=== PATIENT | male | born 1950 | race Hispanic/Latino ===

== ENCOUNTER 2018-08-14 11:51 | Outpatient (CLI) | payer OTHER ==
[2018-08-14 12:52] LABS: #Eosinphils 0.1 thou/uL (0.0-0.7); #Lymphocytes 2.1 thou/uL (1.20-3.40); #Monocytes 0.4 thou/uL (0.11-0.59); %Basophils 0.5 % (0.0-1.0); %Lymphocytes 37.6 % (21.0-51.0); %Monocytes 6.7 % (0.0-10.0); %Neutrophils 53.2 % (42.0-75.0); Hemoglobin 15.2 g/dL (14.0-18.0); Mean Corpuscular HGB CONC 33.3 g/dL (32.0-36.0); Mean Corpuscular Hemoglobin 30.5 pg (27.0-31.0); Mean Corpuscular Volume 91.5 fL (78.0-98.0); Mean Platelet Volume 9.9 fL (7.4-10.4); Platelet Count 162 thou/uL (130-400); Red Blood Cell (RBC) Count 4.97 mill/uL (4.70-6.10); White Blood Cell (WBC) Count 5.6 thou/uL (4.8-10.8)
[2018-08-14 12:58] LABS: INR-International Normal Ratio 1.1; Prothrombin Time 14.2 SEC (12.0-14.7)
[2018-08-14 12:59] LABS: PTT 32.5 SEC (22.9-36.1)
[2018-08-14 13:15] LABS: ALT (SGPT) 74 U/L (8-55); AST (SGOT) 45 U/L (5-34); Albumin 4.5 g/dL (3.4-4.8); Alkaline Phosphatase 63 U/L (40-150); Anion Gap 12 mmol/L (10-20); BUN (Urea Nitrogen) 28 mg/dL (8.4-25.7); Bilirubin, Total 1.5 mg/dL (0.2-1.2); Calc. Creatinine Clearance 0 mL/min (70-130); Calcium 9.4 mg/dL (7.8-10.44); Carbon Dioxide 23 mmol/L (23-31); Chloride 106 mmol/L (98-107); Estimated GFR-MDRD 66; Glucose 135 mg/dL (80-115); Potassium 4.4 mmol/L (3.5-5.1); Protein, Total 7.5 g/dL (5.8-8.1); Sodium 137 mmol/L (136-145)
== END 2018-08-14 11:52 | disposition home or self-care (01) ==
LOC: LABBT 11:51
PROVIDERS: ATTEND Internal Medicine Cardiovascular Disease
DX: Z01.812 Encounter for preprocedural laboratory examination (principal); I25.10 Atherosclerotic heart disease of native coronary artery without angina pectoris
CPT/HCPCS: 80053; 85025; 85610; 85730

== ENCOUNTER 2018-08-22 06:37 | Day surgery (SDC) | payer MEDICARE, OTHER ==
[2018-08-14 11:58] VITALS: BMI 37.6
[2018-08-22] MEDS ORDERED: Lidocaine 1% (PF) 30 ML VIAL ONE (08:22)
[2018-08-22] MEDS ORDERED: Midazolam HCl 2 mg/2 ml Vial ONE (08:52)
[2018-08-22] MEDS ORDERED: Fentanyl 100 MCG/2 ML VIAL ONE (08:53)
[2018-08-22 08:56] LABS: Cardiac Risk 3.8 (Less than 4.5)
[2018-08-22] MEDS ORDERED: Iopamidol 370 76% 50 ML VIAL FS ONE (13:54)
[2018-08-22] MEDS ORDERED: Iopamidol 370 76% 100 ML VIAL ONE (13:54)
--- NOTE | 2018-08-22 19:23 | CON ---
DATE OF CONSULTATION: 08/22/2018 REQUESTING PHYSICIAN: Dr. Quiroz. Primary care is [facility]. CHIEF COMPLAINT: Dyspnea on exertion. HISTORY OF PRESENT ILLNESS: The patient is a 68-year-old man with known coronary artery disease who underwent a long stenting of his LAD in 2009. At that time, he had been having dyspnea on exertion a nd occasional chest heaviness and he had apparently done reasonably well up until about a year ago. Around that time, he began developing shortness of breath with mild exertion and occasionally that wo uld be associated with chest heaviness similar to what he had experienced prior to his stenting. The patient indicates that his symptoms has been gradually getting worse over the past year and he now g ets short of breath with minimal exertion and occasionally even at rest. The patient was vague about whether the onset of these symptoms a year ago was gradual or rapid. The patient had a nuclear stre ss test in 05/2017 that was part of a preoperative evaluation for cholecystectomy. At that time, the re was no obvious ischemia and his ejection fraction was around 55%. His cardiac catheterization tod foreign shows severe 3-vessel coronary artery disease with occlusion of his LAD just beyond very proximal first septal glove pairer which corresponds to the start of his stent. His LVEF by my estimation is ar ound 30% with marked anterior hypokinesis and an inferoapical area of essentially akinesis. PAST MEDICAL HISTORY: Coronary artery disease, hypertension, hyperlipidemia and cholecystectomy. He denies diabetes. HOME MEDICATIONS: Plavix 75 mg a day, aspirin 81 mg a day, lovastatin 20 mg at bedtime, Isordil 30 m g a day. ALLERGIES: He denies any medical allergies. SOCIAL HISTORY: He does not smoke. FAMILY HISTORY: Significant for hypertension in family members. No known diabetes. He did have a b rother with coronary artery disease. REVIEW OF SYSTEMS: Negative for any eye, speech, facial, or extremity symptoms consistent with TIAs. Negative for any other breathing problems prior to this one year progression of dyspnea on exertion . He denies any orthopnea or PND. He does report some mild dependent edema. He denies any claudica tion. PHYSICAL EXAMINATION: GENERAL: He is a stocky healthy-appearing man. VITAL SIGNS: Height is 5 feet and 2 inches, weight is 205 pounds, heart rate is 62, blood pressure 1 43/65, room air O2 sats are 94%-98% and temperature 98.8. HEENT: He has no xanthelasma. NECK: No JVD, no carotid bruits. CHEST: Clear to auscultation. He has a regular rate and rhythm without murmur or gallop. ABDOMEN: Soft and nontender. EXTREMITIES: He has palpable radial, dorsalis pedis, and posterior tibial pulses. He has some small bulging varicosities just below the knee in the saphenous distribution bilaterally. He has no obvio us edema. NEUROLOGIC: Grossly nonfocal exam. LABORATORY DATA AND IMAGING DATA: Laboratory exam shows a white count of 5.6, hemoglobin 15.2, hemat ocrit 45.5 and platelets 162,000. PT is 14.2, INR 1.1, PTT 32.5. Normal electrolytes, glucose 135, BUN 28, creatinine 1.11, bilirubin is 1.5, alkaline phosphatase 63, AST 45, ALT 74, calcium 9.4, prot ein 7.5, albumin 4.5, triglycerides 82, cholesterol 132, LDL 81 and HDL 35. Chest x-ray from last bruary shows borderline cardiomegaly and slightly prominent pleural markings and perhaps some early r ight-sided discoid. His cardiac catheterization shows a right dominant system with about an 80% sten osis in the proximal PDA. His left main appears normal. His first septal glove pairer comes off almos t at the origin of the LAD immediately beyond that is very long stent in the LAD that is occluded. T he LAD cannot be appreciated on left-sided injections, but on right-sided injections, an under-filled LAD can be seen filling through an extensive network of septal collaterals and there is some competi tive flow demonstrated just beyond the stent. In reviewing his films at the time of stenting in 2009 , he had a reasonably good quality LAD, perhaps slightly small. There is a reasonably good diagonal that came off the LAD at fairly high in the level of the stent that is no longer appreciable. He has about a 60% lesion at the ostium of his circumflex. He has a fairly good size OM1 with a 70%-80% le latricia in it and a smaller OM2. LVEF is around 30%. LV pressure was 163/11 with an EDP of 30. Aortic pressure on pullback was 161/62 with a mean of 98. ASSESSMENT AND PLAN: Severe three-vessel coronary artery disease with decreased LV function, althoug h at increased risk. Because of his decreased LV function, patient has a statistically survival adva ntage with surgical revascularization. While it is possible that the LAD may not be graftable, I manjit pect that it is actually under-filled and will be bypassable. He is clinically stable. I will plan on getting him off of his Plavix and then doing coronary artery bypass grafting in about a week or 10 days. I will be prepared at that time for balloon pump placement should that be necessary.
== END 2018-08-22 14:21 | disposition home or self-care (01) ==
LOC: CCL 06:37
PROVIDERS: ATTEND Internal Medicine Cardiovascular Disease
PROC: 4A023N7 Measurement of Cardiac Sampling and Pressure, Left Heart, Percutaneous Approach (ICD-10-PCS; principal; 2018-08-22)
PROC: B2111ZZ Fluoroscopy of Multiple Coronary Arteries using Low Osmolar Contrast (ICD-10-PCS; 2018-08-22)
DX: I25.10 Atherosclerotic heart disease of native coronary artery without angina pectoris (principal); I10 Essential (primary) hypertension; E78.5 Hyperlipidemia, unspecified; E66.9 Obesity, unspecified; Z68.37 Body mass index [BMI] 37.0-37.9, adult; Z79.02 Long term (current) use of antithrombotics/antiplatelets; Z79.82 Long term (current) use of aspirin; Z79.899 Other long term (current) drug therapy
CPT/HCPCS: 36415; 80061; 93458; 99152; C1769; J1644; J2001; J2250; J3010

== ENCOUNTER 2018-09-02 06:01 | Inpatient (IN) | payer MEDICARE ==
[2018-09-02] MEDS ORDERED: Albumin 5% 500 ML ONE (06:27)
[2018-09-02] MEDS ORDERED: CEFAZOLIN 2 GM/50 ML BAG ONE (06:45)
[2018-09-02] MEDS ORDERED: Dexmedetomidine 200 MCG/2 ML VIAL ONE (06:51)
[2018-09-02] MEDS ORDERED: Fentanyl 250 MCG/5 ML VIAL ONE (06:51)
[2018-09-02] MEDS ORDERED: Norepinephrine 8 MG/0.9% NS 250 ML ONE (06:51)
[2018-09-02] MEDS ORDERED: Vecuronium 10 MG VIAL ONE ×2 (06:51→14:03)
[2018-09-02] MEDS ORDERED: Midazolam HCl 2 mg/2 ml Vial ONE ×2 (06:51→07:04)
[2018-09-02 07:14] LABS: Hemoglobin 15.3 g/dL (14.0-18.0); Mean Corpuscular Hemoglobin 29.5 pg (27.0-31.0); Mean Corpuscular Volume 89.6 fL (78.0-98.0); Mean Platelet Volume 9.5 fL (7.4-10.4); Platelet Count 186 thou/uL (130-400); RBC Distribution Width 11.4 % (11.5-14.5); Red Blood Cell (RBC) Count 5.18 mill/uL (4.70-6.10); White Blood Cell (WBC) Count 5.4 thou/uL (4.8-10.8)
[2018-09-02] MEDS ORDERED: Heparin 10,000 UNITS/1 ML VIAL 30,000 UNITS in Sodium Chloride 0.9% 1,000 ML FS SCH (07:15)
[2018-09-02 07:22] LABS: Anion Gap 12 mmol/L (10-20); BUN (Urea Nitrogen) 22 mg/dL (8.4-25.7); Calc. Creatinine Clearance 0 mL/min (70-130); Calcium 9.8 mg/dL (7.8-10.44); Carbon Dioxide 26 mmol/L (23-31); Chloride 103 mmol/L (98-107); Estimated GFR-MDRD 88; Glucose 108 mg/dL (80-115); Potassium 3.6 mmol/L (3.5-5.1); Sodium 137 mmol/L (136-145)
[2018-09-02] MEDS ORDERED: Milrinone 10 MG/10 ML VIAL ONE (07:23)
[2018-09-02] MEDS ORDERED: hydrALAZINE 20 MG/ML VIAL SLOW IVP PRN (08:05)
[2018-09-02] MEDS ORDERED: Morphine 2 MG/ML SYRINGE SLOW IVP PRN (08:05)
[2018-09-02] MEDS ORDERED: Post-Op Insulin Drip Protocol IVPB ONE (08:05)
[2018-09-02] MEDS ORDERED: niCARdipine HCl 25 MG in Sodium Chloride 0.9% 250 ML 240 ML IVPB PRN (08:05)
[2018-09-02] MEDS ORDERED: Potassium Chloride 20 MEQ/100 ML PREMIX BAG IVPB PRN (08:05)
[2018-09-02] MEDS ORDERED: Guaifenesin DM 100-10/5 ML UDCUP PO PRN (08:05)
[2018-09-02] MEDS ORDERED: Nitroglycerin 50 MG/250 ML BOT 250 ML IVPB PRN (08:05)
[2018-09-02] MEDS ORDERED: Fentanyl 100 MCG/2 ML VIAL SLOW IVP PRN ×2 (08:05)
[2018-09-02] MEDS ORDERED: Bisacodyl 10 MG SUPP PR PRN (08:05)
[2018-09-02] MEDS ORDERED: Norepinephrine 8 MG/0.9% NS 250 ML IVPB PRN (08:05)
[2018-09-02] MEDS ORDERED: Hetastarch 6% 500 ML 500 ML IVPB PRN (08:05)
[2018-09-02] MEDS ORDERED: Promethazine HCl 25 MG/ML VIAL IM PRN (08:05)
[2018-09-02] MEDS ORDERED: Acetaminophen 325 MG TAB PO PRN (08:05)
[2018-09-02] MEDS ORDERED: Bisacodyl 5 MG TAB PO PRN (08:05)
[2018-09-02] MEDS ORDERED: Mag-Al 1200 mg/1200 mg/30 ML UDCUP PO PRN (08:05)
[2018-09-02] MEDS ORDERED: Dextrose 5% in Water 1,000 ML IV PRN (08:24)
[2018-09-02] MEDS ORDERED: Dextrose 50% Abboject 50 ML SYRINGE SLOW IVP PRN (08:24)
[2018-09-02] MEDS ORDERED: Insulin Regular 300 UNITS/3 ML VIAL ONE (09:32)
--- NOTE | 2018-09-02 09:57 | RAD ---
PORTABLE CHEST 1 VIEW: DATE: 09/02/2018. TIME: 5:34 a.m. HISTORY: Coronary artery disease, preop evaluation, CABG. FINDINGS: Comparison is made with the exam of 11/14/2017. The heart size is prominent. The lungs are expanded without focal areas of consolidation, pneumothor ax, david pulmonary edema, or large effusions. POS: GALILEAH
[2018-09-02] MEDS: Aspirin 81 mg Enteric Coated Tablet PO SCH (10:55)
[2018-09-02] MEDS ORDERED: PHENYLEPHRINE-NS 100 MCG/ML 10 ML SYRINGE ONE (11:19)
[2018-09-02] MEDS: Sodium Chloride 0.9% 1,000 ML IV SCH (13:25)
[2018-09-02 13:36] LABS: #Eosinphils 0.1 thou/uL (0.0-0.7); #Monocytes 0.7 thou/uL (0.11-0.59); #Neutrophils 11.1 thou/uL (1.40-6.50); %Basophils 0.1 % (0.0-1.0); %Eosinophils 0.6 % (0.0-10.0); %Lymphocytes 14.2 % (21.0-51.0); %Monocytes 4.8 % (0.0-10.0); %Neutrophils 80.3 % (42.0-75.0); Hemoglobin 12.6 g/dL (14.0-18.0); Mean Corpuscular HGB CONC 34.9 g/dL (32.0-36.0); Mean Corpuscular Hemoglobin 31.1 pg (27.0-31.0); Mean Platelet Volume 9.5 fL (7.4-10.4); Platelet Count 147 thou/uL (130-400); RBC Distribution Width 11.3 % (11.5-14.5); Red Blood Cell (RBC) Count 4.05 mill/uL (4.70-6.10); White Blood Cell (WBC) Count 13.8 thou/uL (4.8-10.8)
--- NOTE | 2018-09-02 13:36 | OP ---
DATE OF PROCEDURE: 09/02/2018 PROCEDURE PERFORMED: Coronary artery bypass grafting x4 with left internal mammary artery to the LAD and reverse greater saphenous vein graft from the aorta to the diagonal from the aorta to the first obtuse marginal from the aorta to the PDA. A 5-St Lucian left femoral arterial line placement with ultr asonographic guidance. PREOPERATIVE DIAGNOSIS: Coronary artery disease with ischemic cardiomyopathy. POSTOPERATIVE DIAGNOSIS: Coronary artery disease with ischemic cardiomyopathy with right pneumothora x. SURGEON: Dr. Bienvenido Starks [employer] INSTRUCTOR: Dr. Fercho Tran ANESTHESIA: General endotracheal anesthesia. INDICATIONS: The patient is a 68-year-old man with known coronary disease, having previously undergo ne proximal LAD stenting. About a year ago he redeveloped chest heaviness and dyspnea on exertion an d was found to have occluded his LAD stent, as well as developing disease in the circumflex and to a lesser extent right coronary system. He had markedly decreased LV function. He was taken off of his Plavix and now admitted electively for surgical revascularization. FINDINGS: Pump time 88 minutes. Crossclamp time 42 minutes. Good quality NELY and saphenous vein. The LAD was about a 1.5-2 mm good quality vessel. The diagonal was about a 1.5 mm vessel with some p laquing in its mid portion. The first obtuse marginal was a 2-2.5 mm vessel which appeared to freely communicate with about a 1.5 mm OM2 in spite of proximal plaquing in the vessel. The PDA was about a 2 mm vessel with proximal plaquing. The right pleura was bulging consistent with a right pneumotho rax. The pericardium was loosely closed. NARRATIVE REPORT: After informed consent was obtained, the patient was taken to the operating room a nd placed in supine position on the operating table. After induction of general anesthesia, the joann ent's right upper chest was prepped and draped in sterile fashion. A triple-lumen central line kit w as used to place a right subclavian line by the Seldinger technique. All three ports easily aspirate d and flushed. The line was secured. Ultrasonographic mapping of the patient's left greater sapheno us vein and left femoral artery were undertaken with the vein and the common femoral marked. The pat ient's torso, groins and lower extremities were then prepped and draped in sterile fashion. A 5-St Lucian left femoral arterial line was placed by the Seldinger technique and greater saphenous vei n was harvested endoscopically from groin to mid calf with a port site at the knee, the vein was prep ared for use as a graft and the harvest sites were closed in layers with subcutaneous and subcuticula r Vicryl. A median sternotomy was performed. The left internal mammary artery was mobilized as a sk eletonized in situ graft from the level of the xiphoid to the level of the subclavian vein, although an extrapleural exposure was initiated, a rather large rent in the medial pleura near the apex noname nable to repair was created in the course of the dissection. The patient was heparinized. The mamma ry was ligated and divided distally. There was good flow through the mammary which was instilled int raluminally with papaverine solution. The mammary bed was inspected for hemostasis. The NELY retract or was placed with an ____. The pericardium was opened and marsupialized. The aorta was palpated an d was soft. The heart was very large and exposure of adequate length of ascending aorta required can nulation above the pericardial reflection. A double concentric pursestring of 2-[address] d in the ascending aorta at the base of the arch and a single pursestring was placed in the right atr ial appendage. Aortic and venous cannulae were inserted and secured by the pursestrings. Cardiopulm onary bypass was instituted and the patient was systemically cooled. The heart was examined. The ve ssel to be bypassed were identified. A longitudinal slit was made in the pericardium anterior to the left phrenic nerve through which the mammary pedicle could be passed. The plane between the aorta a nd the pulmonary artery was developed and aortic cross clamp was applied and cardioplegia was adminis tered through an aortic root needle. When arrest had been achieved attention was turned to the dista l right coronary system. The PDA was opened just beyond some palpable plaque at its origin. The gre ater saphenous vein was reversed and anastomosed their end-to-side with running Prolene suture and th e anastomosis tested by flushing cold cardioplegia down the graft. Attention was then turned to the circumflex system. The OM1 was clearly the larger vessel, although the OM2 appeared to be adequate t o support grafting to get beyond the plaquing in the visible plaquing OM1 and to graft proximally jacque ugh to the OM2 where it a reasonably sized vessel. The OM1 was first opened and saphenous vein was a nastomosed to it end to side, upon flushing cold cardioplegia the end of the graft could be appreciat ed that are quite readily communicated with the OM2 and it was opted to abandon plans to graft that v essel. The diagonal was opened beyond some visible plaquing and anastomosed end-to-side with that sa phenous vein. The LAD was then opened distally and the mammary was anastomosed to it with running 7- 0 Prolene. The mammary was tacked to the epicardium. The aortic crossclamp was placed with partial occluding clamp. Aortotomy was made in the ascending aorta with a scalpel and punch incorporating th e root needle site in one of those aortotomies. In order to accommodate the rather large pulmonary a rtery the aortotomies were made somewhat to the right of midline. The PDA graft was brought along th e right side of the heart and anastomosed to the most proximal aortotomy. The diagonal and OM grafts were anastomosed to the middle and distal aortotomies respectively. The partial occluding clamp was removed and the vein grafts were deaired. The anastomoses were inspected for hemostasis. The proxi mal anastomoses were marked with small Hemoclips. A left pleural drain and a posterior pericardial d rain were brought up through separate incisions and secured with suture. Right atrial and right vent ricular temporary epicardial pacing wires were placed. The patient was then from cardiopul monary bypass. Aortic and venous cannulae were removed and their pursestring secured. Protamine was administered. The right pleura was bulging. It was opened to decompress what appeared to represent a pneumothorax. Additional holes were cut and a straight 36 [place] Lucian chest tube. That chest tube was placed in the anterior mediastinum with the tip passed into the right pleural space. The pericardiu m was loosely closed around it. The sternum was treated with vancomycin paste and platelet-rich GPS and then reapproximated with #7 stainless steel wires. The fascia and subcutaneous tissue was irriga sammy and treated with platelet poor GPS. The fascia was closed over the wires with heavy Vicryl and t he subcu reapproximated with 2-0 Vicryl, and the skin was closed with Vicryl subcuticular suture. Th e wounds were dressed and the patient was taken to the Intensive Care Unit in stable condition.
[2018-09-02 13:42] LABS: Actual Bicarbonate (HCO3a) 23.3 mEq/L (22-28); Base Excess (BEa) -1.3 mEq/L (-2.0 to +3.0); CO2 Tension 38.8 mmHg (35.0-45.0); Calcium, Ionized 1.07 mmol/L (1.12-1.30); Carboxyhemoglobin (COHb) 0.8 gm% (0.0-3.0); Hemoglobin (Hb) 12.9 g/dL (14.0-18.0); O2 Tension (PaO2) 95.1 mmHg (> 80.0); Potassium - ABG Lab 3.98 mmol/L (3.70-5.30)
[2018-09-02 13:44] LABS: Puncture Site ALINE
[2018-09-02 13:45] LABS: INR-International Normal Ratio 1.5; PTT 32.8 SEC (22.9-36.1); Prothrombin Time 18.6 SEC (12.0-14.7)
[2018-09-02 13:54] LABS: Anion Gap 8 mmol/L (10-20); BUN (Urea Nitrogen) 17 mg/dL (8.4-25.7); Calc. Creatinine Clearance 0 mL/min (70-130); Calcium 7.5 mg/dL (7.8-10.44); Carbon Dioxide 23 mmol/L (23-31); Chloride 112 mmol/L (98-107); Estimated GFR-MDRD Greater than 90; Glucose 112 mg/dL (80-115); Potassium 4.1 mmol/L (3.5-5.1); Sodium 139 mmol/L (136-145)
[2018-09-02] MEDS ORDERED: Calcium Chloride 1 GM/10 ML Abboject SYRINGE ONE (14:03)
[2018-09-02] MEDS ORDERED: Thrombin 5000 UNITS/5 ML VIAL ONE (14:03)
[2018-09-02] MEDS ORDERED: Lidocaine 1% PF 5 ML VIAL ONE (14:03)
[2018-09-02] MEDS ORDERED: Norepinephrine 4 MG/4 ML VIAL ONE (14:03)
[2018-09-02] MEDS ORDERED: Cardioplegic Soln 1,000 ML BAG ONE (14:03)
[2018-09-02] MEDS ORDERED: PROPOFOL 200 MG/20 ML VIAL ONE (14:03)
[2018-09-02] MEDS ORDERED: Papaverine 60 MG/2 ML VIAL ONE (14:03)
[2018-09-02] MEDS ORDERED: Protamine Sulfate 250 MG/25 ML VIAL ONE (14:03)
[2018-09-02] MEDS ORDERED: Nitroglycerin 50 MG/250 ML BOT ONE (14:03)
[2018-09-02] MEDS ORDERED: Sodium Bicarb 50 MEQ/50 ML VIAL ONE (14:03)
[2018-09-02] MEDS ORDERED: Heparin 30,000 units/30 ml VIAL ONE (14:03)
[2018-09-02] MEDS ORDERED: Heparin 5,000 UNITS/ML VIAL ONE (14:03)
[2018-09-02] MEDS ORDERED: Aminocaproic Acid 5 GM/20 ML VIAL ONE (14:03)
[2018-09-02] MEDS: Ondansetron PF 4 MG/2 ML Vial IVP PRN (14:17)
[2018-09-02] MEDS: Ketorolac Tromethamine 30 MG/ML VIAL IVP SCH ×3 (14:18→23:25)
[2018-09-02] MEDS: Famotidine/PF 20 mg/2ml Vial SLOW IVP SCH ×2 (14:32→20:26)
--- NOTE | 2018-09-02 15:29 | RAD ---
RADIOGRAPH CHEST 1 VIEW: Date: 09-02-18 Time: 1:20 P.M. HISTORY: 68-year-old male has undergone open heart surgery. COMPARISON: 09-02-18 at 5:34 a.m. FINDINGS: New endotracheal tube with distal tip overlying the upper/mid thoracic trachea. New midline chest tub e ascending from left para median approach with distal tip overlying the contralateral right apex. Ne w chest tube entering the left lateral base with distal tip directed medially overlying the descendin g aorta. Cardiomegaly is again noted. New increased attenuation at left lower lobe consistent with at electasis. Mild new subsegmental atelectasis at right midlung zone. No pulmonary edema or pneumothora x identified. New sternotomy wires. IMPRESSION: 1. Immediately status post open heart surgery with life support lines as listed above. 2. Left lower lobe atelectasis. JO ANN POS: MAULIK
[2018-09-02] MEDS: Insulin Regular 300 UNITS/3 ML VIAL SC PRN ×3 (17:11→23:35)
--- NOTE | 2018-09-02 17:26 | CON ---
DATE OF CONSULTATION: 09/02/2018 REASON FOR CONSULTATION: Post-CABG. PRIMARY TITLE ONE [employer] TEACHER: Anthony Quiroz M.D. HISTORY OF PRESENT ILLNESS: Mr. Yu is a very pleasant 68-year-old gentleman who comes to the hospital for planned CABG. He was taken to the catheterization lab a week ago, he underwent hea rt catheterization after ongoing symptoms suggestive of angina. He had this procedure done and was f ound to have an occluded LAD which fills from collaterals, pain in the left circumflex and the pain i n the right coronary artery. He was taken to the OR and had a MONTELONGO to the LAD, a vein graft to a susan gonal, a vein graft to an OM, and a vein graft to PDA. He did well. He is postoperative day #1. He is still intubated and sedated; however, he is requirin g very small amount of pressor support to maintain his blood pressure. No other issues. PAST MEDICAL HISTORY: 1. Hypertension. 2. Hyperlipidemia. 3. Coronary artery disease as above. PAST SURGICAL HISTORY: 1. Cholecystectomy. 2. CABG x4 as above. OUTPATIENT MEDICATIONS: Include, 1. Plavix 75 mg a day. 2. Lovastatin 20 mg a day. 3. Aspirin 81 a day. 4. Isosorbide mononitrate 30 mg a day. ALLERGIES: No known drug allergies. SOCIAL HISTORY: No alcohol, tobacco or drugs. FAMILY HISTORY: Noncontributory. REVIEW OF SYSTEMS: Unobtainable as the patient is sedated and intubated. PHYSICAL EXAMINATION: VITAL SIGNS: Temperature 97.7, pulse 64, respiratory rate 12, satting 100% on 40% FIO2. Blood press ure 114/51. GENERAL: Sedated and intubated. LUNGS: Have coarse breath sounds. CARDIOVASCULAR: S1, S2. There is a 3 component rub. ABDOMEN: Soft, positive bowel sounds. EXTREMITIES: 1+ edema. SKIN: Warm and dry. LABORATORY WORK: Reviewed. CBC, coags, and ABGs and chemistries were all reviewed. ASSESSMENT AND PLAN: 1. Coronary artery disease. 2. Status post coronary artery bypass graft x4 with a MONTELONGO to the LAD, a vein to diagonal, vein to a n OM, and a vein to RPDA. 3. Hyperlipidemia. 4. Hypertension. PLAN: 1. Continue supportive care for now. 2. He will need a statin and aspirin for life, beta merlin and EMERY inhibitor once blood pressure al lows. 3. We will follow.
--- NOTE | 2018-09-02 19:18 | EKG ---
Test Reason : PREOP Blood Pressure : / mmHG Vent. Rate : 056 BPM Atrial Rate : 056 BPM P-R Int : 180 ms QRS Dur : 126 ms QT Int : 466 ms P-R-T Axes : 019 010 115 degrees QTc Int : 449 ms Sinus bradycardia Non-specific intra-ventricular conduction block T wave abnormality, consider anterolateral ischemia Abnormal ECG When compared with ECG of 29-MAY-2017 22:10, QRS duration has increased T wave inversion now evident in Anterolateral leads Confirmed by ZHANNA OSORIO, SKarie (4) on 09/02/2018 7:17:56 PM Referred By: CLARENCE Confirmed By:DR. Annalisa CHAO MD
--- NOTE | 2018-09-02 19:30 | EKG ---
Test Reason : POST CABG Blood Pressure : / mmHG Vent. Rate : 061 BPM Atrial Rate : 061 BPM P-R Int : 168 ms QRS Dur : 098 ms QT Int : 478 ms P-R-T Axes : 033 008 118 degrees QTc Int : 481 ms Normal sinus rhythm Minimal voltage criteria for LVH, may be normal variant T wave abnormality, consider anterolateral ischemia Prolonged QT Abnormal ECG When compared with ECG of 02-SEP-2018 06:51, (Unconfirmed) QRS duration has decreased Confirmed by ZHANNA OSORIO, DR. Fang ([id number]) on 09/02/2018 7:30:44 PM Referred By: CLARENCE Confirmed By:DR. Annalisa CHAO MD
[2018-09-02 19:32] LABS: Potassium 4.5 mmol/L (3.5-5.1)
[2018-09-02] MEDS: Simvastatin 5 MG TAB PO SCH (20:26)
[2018-09-03] MEDS: Sodium Chloride 0.9% 1,000 ML IV SCH ×2 (01:50→14:20)
[2018-09-03] MEDS: Insulin Regular 300 UNITS/3 ML VIAL SC PRN (04:12)
[2018-09-03] MEDS: Ketorolac Tromethamine 30 MG/ML VIAL IVP SCH (05:11)
[2018-09-03 05:16] LABS: Actual Bicarbonate (HCO3a) 20.4 mEq/L (22-28); Base Excess (BEa) -3.8 mEq/L (-2.0 to +3.0); Calcium, Ionized 1.02 mmol/L (1.12-1.30); Carboxyhemoglobin (COHb) 0.9 gm% (0.0-3.0); Hemoglobin (Hb) 10.4 g/dL (14.0-18.0); O2 Tension (PaO2) 89.5 mmHg (> 80.0); Potassium - ABG Lab 4.25 mmol/L (3.70-5.30)
[2018-09-03 05:17] LABS: Puncture Site ALINE
[2018-09-03 05:38] LABS: Anion Gap 11 mmol/L (10-20); BUN (Urea Nitrogen) 22 mg/dL (8.4-25.7); Calc. Creatinine Clearance 97 mL/min (70-130); Calcium 7.4 mg/dL (7.8-10.44); Carbon Dioxide 21 mmol/L (23-31); Chloride 111 mmol/L (98-107); Estimated GFR-MDRD 75; Glucose 160 mg/dL (80-115); Potassium 4.3 mmol/L (3.5-5.1); Sodium 139 mmol/L (136-145)
[2018-09-03 06:00] LABS: #Lymphocytes 0.6 thou/uL (1.20-3.40); #Monocytes 0.5 thou/uL (0.11-0.59); #Neutrophils 6.2 thou/uL (1.40-6.50); %Eosinophils 0.6 % (0.0-10.0); %Lymphocytes 7.6 % (21.0-51.0); %Monocytes 6.5 % (0.0-10.0); %Neutrophils 85.3 % (42.0-75.0); Hemoglobin 10.7 g/dL (14.0-18.0); Mean Corpuscular HGB CONC 34.1 g/dL (32.0-36.0); Mean Corpuscular Hemoglobin 30.8 pg (27.0-31.0); Mean Corpuscular Volume 90.4 fL (78.0-98.0); Mean Platelet Volume 10.3 fL (7.4-10.4); PLT Morphology Comment Appears Decreased; Platelet Count 119 thou/uL (130-400); RBC Distribution Width 11.5 % (11.5-14.5); Red Blood Cell (RBC) Count 3.46 mill/uL (4.70-6.10); White Blood Cell (WBC) Count 7.2 thou/uL (4.8-10.8)
[2018-09-03] MEDS ORDERED: diphenhydrAMINE 25 MG CAP PO PRN (07:18)
[2018-09-03] MEDS ORDERED: Mag-Al 1200 mg/1200 mg/30 ML UDCUP PO PRN (07:18)
[2018-09-03] MEDS ORDERED: Zolpidem Tartrate 5 MG TAB PO PRN (07:18)
[2018-09-03] MEDS ORDERED: Artificial Tears 18 DROP/0.9 ML EA EYE PRN (07:18)
[2018-09-03] MEDS ORDERED: Nitroglycerin 0.4 MG TAB (25 Tab Bottle) SL PRN (07:18)
[2018-09-03] MEDS ORDERED: Mineral Oil ENEMA PR PRN (07:18)
[2018-09-03] MEDS ORDERED: Bisacodyl 10 MG SUPP PR PRN (07:18)
[2018-09-03] MEDS ORDERED: Bisacodyl 5 MG TAB PO PRN (07:18)
[2018-09-03] MEDS ORDERED: Furosemide 40 MG/4 ML VIAL SLOW IVP SCH ×2 (08:00→15:00)
[2018-09-03] MEDS: Docusate 100 MG CAP PO SCH ×2 (08:08→20:24)
[2018-09-03] MEDS: Aspirin 81 mg Enteric Coated Tablet PO SCH (08:09)
[2018-09-03] MEDS: HYDROcodone/Acetaminophen 5/325 mg Tablet PO PRN ×2 (09:56→20:25)
--- NOTE | 2018-09-03 10:23 | RAD ---
CHEST ONE VIEW: INDICATIONS: Status post open heart surgery. FINDINGS: The patient has been intervally extubated. The left-sided thoracostomy, a right-sided thoracostomy t ube, and a right subclavian central venous catheter are unchanged. Cardiomegaly persists. There is improved aeration of the right upper lobe with some residual atelectasis. No pneumothorax is grossly evident. Subcutaneous emphysema is present, overlying the anterior chest wall within the pectoralis . There is a healed deformity involving the left clavicle. IMPRESSION: 1. Interval extubation and removal of gastric catheter. 2. Stable thoracostomy tube. 3. Stable right-sided subclavian central venous catheter. 4. Persistent cardiomegaly. 5. Small amount of subcutaneous emphysema overlying the chest wall. 6. No pneumothorax. POS: [facility]
--- NOTE | 2018-09-03 13:02 | PDOC.CTH ---
Cardiology Progress Note - Subjective Doing better. Extubated now. Sore chest. - Objective Vital Signs Temp Pulse Pulse Pulse Resp BP BP 09/03/18 11:50 97.8 F 09/03/18 10:55 97.8 F 09/03/18 09:30 77 78 101/55 L 09/03/18 07:43 99.1 F 73 20 09/03/18 07:00 99.2 F 09/03/18 05:02 09/03/18 04:00 98.1 F 22 H 09/03/18 02:34 72 82/53 L 09/03/18 02:00 17 BP Pulse Ox 09/03/18 11:50 09/03/18 10:55 09/03/18 09:30 125/64 09/03/18 07:43 97 09/03/18 07:00 09/03/18 05:02 94 L 09/03/18 04:00 09/03/18 02:34 09/03/18 02:00 Weight 208 lb 1.862 oz 09/02/18 09/03/18 09/04/18 06:59 06:59 06:59 Intake Total 2329.1 1340 Output Total 1210 1115 Balance 1119.1 225 - Physical Examination General/Neuro: alert & oriented x3, NAD Neck: no JVD present Lungs: CTA, unlabored respirations Heart: RRR Abdomen: NT/ND Extremities: + edema B (1+) - Telemetry Telemetry Rhythm: NSR - Labs Result Diagrams: 09/03/18 04:05 09/03/18 04:05 - Assessment/Plan 1. CAD 2. S/P CABG PLAN: - Continue post op care - ASA and statin fo rlife. - BB and ACEI once BP allows.
[2018-09-03 14:03] LABS: Actual Bicarbonate (HCO3a) 20.4 mEq/L (22-28); Base Excess (BEa) -4.8 mEq/L (-2.0 to +3.0); CO2 Tension 38.5 mmHg (35.0-45.0); Calcium, Ionized 1.07 mmol/L (1.12-1.30); Carboxyhemoglobin (COHb) 0.4 gm% (0.0-3.0); Hemoglobin (Hb) 13.2 g/dL (14.0-18.0); O2 Tension (PaO2) 411.1 mmHg (> 80.0); Potassium - ABG Lab 4.32 mmol/L (3.70-5.30); pH, Arterial 7.34 (7.35-7.45)
[2018-09-03 14:05] LABS: Analyzer IN Cardio OR; Base Excess (BEa) 0.1 mEq/L (-2.0 to +3.0); CO2 Tension 54.9 mmHg (35.0-45.0); Calcium, Ionized 0.99 mmol/L (1.12-1.30); Carboxyhemoglobin (COHb) 0.3 gm% (0.0-3.0); Hemoglobin (Hb) 10.3 g/dL (14.0-18.0); Potassium - ABG Lab 5.08 mmol/L (3.70-5.30); pH, Arterial 7.31 (7.35-7.45)
[2018-09-03 14:05] LABS: Actual Bicarbonate (HCO3v) 21 mEq/L (22-28); Analyzer IN Cardio OR; Base Excess -6.9 mEq/L (-2.0 to +3.0); Chloride (ABG LAB) 105 mmol/L (98-106); Hemoglobin (Hb) 10.7 g/dL (12.6-17.4); Sodium 132.3 mmol/L (133-146)
[2018-09-03 14:05] LABS: Actual Bicarbonate (HCO3a) 21.1 mEq/L (22-28); Analyzer IN Cardio OR; Base Excess (BEa) -6.2 mEq/L (-2.0 to +3.0); CO2 Tension 49.7 mmHg (35.0-45.0); Calcium, Ionized 1.05 mmol/L (1.12-1.30); Carboxyhemoglobin (COHb) 0.3 gm% (0.0-3.0); Hemoglobin (Hb) 10.8 g/dL (14.0-18.0); O2 Tension (PaO2) 427.1 mmHg (> 80.0); Potassium - ABG Lab 4.92 mmol/L (3.70-5.30)
[2018-09-03 14:06] LABS: Actual Bicarbonate (HCO3a) 21.5 mEq/L (22-28); Analyzer IN Cardio OR; Base Excess (BEa) -3.2 mEq/L (-2.0 to +3.0); CO2 Tension 37.5 mmHg (35.0-45.0); Calcium, Ionized 1.11 mmol/L (1.12-1.30); Carboxyhemoglobin (COHb) 0.4 gm% (0.0-3.0); Hemoglobin (Hb) 13.6 g/dL (14.0-18.0); O2 Tension (PaO2) 388.1 mmHg (> 80.0); Potassium - ABG Lab 4.02 mmol/L (3.70-5.30); pH, Arterial 7.38 (7.35-7.45)
[2018-09-03 14:06] LABS: Actual Bicarbonate (HCO3a) 24.2 mEq/L (22-28); Analyzer IN Cardio OR; CO2 Tension 47.9 mmHg (35.0-45.0); Calcium, Ionized 1.13 mmol/L (1.12-1.30); Carboxyhemoglobin (COHb) 0.3 gm% (0.0-3.0); Hemoglobin (Hb) 10.4 g/dL (14.0-18.0); O2 Tension (PaO2) 145.4 mmHg (> 80.0); Potassium - ABG Lab 4.18 mmol/L (3.70-5.30); pH, Arterial 7.32 (7.35-7.45)
[2018-09-03 14:19] LABS: Puncture Site ALINE
[2018-09-03 14:20] LABS: Puncture Site ALINE
[2018-09-03 14:21] LABS: pH (venous) 7.22 (7.32-7.43)
[2018-09-03 14:29] LABS: Puncture Site ALINE
[2018-09-03 14:30] LABS: Puncture Site ALINE; pH, Arterial 7.25 (7.35-7.45)
[2018-09-03 14:31] LABS: Analyzer IN Cardio OR; Puncture Site ALINE
[2018-09-03] MEDS: Simvastatin 5 MG TAB PO SCH (20:24)
[2018-09-04 05:28] LABS: Anion Gap 11 mmol/L (10-20); BUN (Urea Nitrogen) 19 mg/dL (8.4-25.7); Calc. Creatinine Clearance 121 mL/min (70-130); Calcium 7.6 mg/dL (7.8-10.44); Carbon Dioxide 23 mmol/L (23-31); Chloride 108 mmol/L (98-107); Estimated GFR-MDRD Greater than 90; Glucose 135 mg/dL (80-115); Potassium 3.9 mmol/L (3.5-5.1); Sodium 138 mmol/L (136-145)
[2018-09-04 05:37] LABS: #Eosinphils 0.1 thou/uL (0.0-0.7); #Lymphocytes 0.8 thou/uL (1.20-3.40); #Monocytes 0.5 thou/uL (0.11-0.59); #Neutrophils 4.7 thou/uL (1.40-6.50); %Basophils 0.1 % (0.0-1.0); %Eosinophils 2.3 % (0.0-10.0); %Lymphocytes 12.5 % (21.0-51.0); %Monocytes 7.6 % (0.0-10.0); %Neutrophils 77.6 % (42.0-75.0); Mean Corpuscular HGB CONC 33.9 g/dL (32.0-36.0); Mean Corpuscular Hemoglobin 31.2 pg (27.0-31.0); Mean Platelet Volume 10.3 fL (7.4-10.4); Platelet Count 86 thou/uL (130-400); RBC Distribution Width 11.7 % (11.5-14.5); Red Blood Cell (RBC) Count 3.21 mill/uL (4.70-6.10)
[2018-09-04] MEDS: Sodium Chloride 0.9% 1,000 ML IV SCH (05:46)
[2018-09-04] MEDS: HYDROcodone/Acetaminophen 5/325 mg Tablet PO PRN ×3 (07:45→21:40)
--- NOTE | 2018-09-04 07:45 | RAD ---
PORTABLE CHEST ONE VIEW: History: 68-year-old male with history of post coronary artery bypass graft. Comparison: 09-03-18 FINDINGS: Stable right subclavian catheter and chest tubes and post-operative changes involving the chest with poor inspiration and some bilateral vascular congestion and some post op changes bilaterally. No evid ence for significant pneumothorax. IMPRESSION: Stable post-operative changes. POS: [facility]
[2018-09-04] MEDS: Docusate 100 MG CAP PO SCH ×2 (09:34→21:41)
[2018-09-04] MEDS: Aspirin 81 mg Enteric Coated Tablet PO SCH (09:34)
--- NOTE | 2018-09-04 12:37 | PDOC.CTH ---
Cardiology Progress Note - Subjective Sore chest otherwise no new issues. - Objective Vital Signs Temp Pulse Resp BP Pulse Ox 09/04/18 08:34 98.9 F 20 152/70 H 96 09/04/18 06:48 97 09/04/18 03:45 98.1 F 70 28 H 116/56 L 96 Weight 214 lb 9.6 oz 09/03/18 09/04/18 09/05/18 06:59 06:59 06:59 Intake Total 2329.1 3753 Output Total 1210 3165 Balance 1119.1 588 - Physical Examination General/Neuro: alert & oriented x3, NAD Neck: no JVD present Lungs: CTA, unlabored respirations Heart: RRR Abdomen: NT/ND Extremities: + edema B (1+) - Telemetry Telemetry Rhythm: NSR - Labs Result Diagrams: 09/04/18 04:37 09/04/18 04:37 - Assessment/Plan 1. CAD 2. S/P CABG PLAN: - Continue post op care - ASA and statin fo rlife. - Will start BB and ACEI today. - Daily PO lasix for now.
--- NOTE | 2018-09-04 14:14 | PQF ---
CLINICAL DOCUMENTATION IMPROVEMENT CLARIFICATION FORM: ICD-10 Updated PLEASE DO AN ADDENDUM TO THE PROGRESS NOTE WITH ANY DOCUMENTATION UPDATES OR ADDITIONS AND CARRY THROUGH TO DC SUMMARY. THANK YOU. DATE: 09/04/18 ATTN: Dr. Starks Please exercise your independent, professional judgment in responding to the clarification form. Clinical indicators are provided on the bottom of this form for your review Please check appropriate box(s): [ x] Right pneumothorax is a complication of current/recent surgery [ ] Right pneumothorax is not a complication of current/recent surgery [ ] Other diagnosis [ ] Unable to determine In addition, please specify: Present on Admission (POA): [ ] Yes [ ] No [ ] Unable to determine CLINICAL INDICATORS - SIGNS / SYMPTOMS / LABS OP REPORT 09/02: Post-op Dx: Coronary artery disease with ischemic cardiomyopathy with right pneumothorax The right pleura was bulging. It was opened to decompress what appeared to represent a pneumothorax. Additional holes were cut and a straight 36 Turkmen chest tube. RISKS: OP REPORT: Preoperative Dx: Coronary artery disease with ischemic cardiomyopathy. TREATMENT: OP REPORT 09/02: Chest tube was placed in the anterior mediastinum with the tip passed into the r pleural space. Thank you, Kat (This form is maintained as a part of the permanent medical record) 2014 [employer]. All Rights Reserved Kat Roa RN, BSN [email or web address] Office: [phone] [facility]
[2018-09-04] MEDS: Carvedilol 3.125 MG TAB PO SCH (16:37)
[2018-09-04] MEDS: Simvastatin 5 MG TAB PO SCH (21:41)
[2018-09-05 05:40] LABS: #Basophils 0.1 thou/uL (0.0-0.2); #Eosinphils 0.2 thou/uL (0.0-0.7); #Monocytes 0.5 thou/uL (0.11-0.59); #Neutrophils 5.5 thou/uL (1.40-6.50); %Basophils 1.1 % (0.0-1.0); %Eosinophils 3.2 % (0.0-10.0); %Lymphocytes 13.3 % (21.0-51.0); %Monocytes 6.4 % (0.0-10.0); %Neutrophils 75.9 % (42.0-75.0); Hemoglobin 10.6 g/dL (14.0-18.0); Mean Corpuscular HGB CONC 34.3 g/dL (32.0-36.0); Mean Corpuscular Hemoglobin 31.4 pg (27.0-31.0); Mean Corpuscular Volume 91.5 fL (78.0-98.0); Mean Platelet Volume 9.8 fL (7.4-10.4); Platelet Count 113 thou/uL (130-400); RBC Distribution Width 11.5 % (11.5-14.5); Red Blood Cell (RBC) Count 3.38 mill/uL (4.70-6.10); White Blood Cell (WBC) Count 7.3 thou/uL (4.8-10.8)
[2018-09-05 05:49] LABS: Anion Gap 10 mmol/L (10-20); BUN (Urea Nitrogen) 17 mg/dL (8.4-25.7); Calc. Creatinine Clearance 135 mL/min (70-130); Carbon Dioxide 23 mmol/L (23-31); Chloride 107 mmol/L (98-107); Estimated GFR-MDRD Greater than 90; Glucose 121 mg/dL (80-115); Potassium 4.1 mmol/L (3.5-5.1); Sodium 136 mmol/L (136-145)
--- NOTE | 2018-09-05 07:51 | RAD ---
SINGLE VIEW CHEST: Date: 09/05/18 COMPARISON: 09/04/18. HISTORY: Status post CABG for coronary artery disease. FINDINGS: Single view of the chest shows an enlarged but stable cardiomediastinal silhouette. The patient is st atus post sternotomy. The lines and tubes are unchanged in position. There may be mild atelectasis in the left lung base. IMPRESSION: Stable exam. POS: [facility]ORA
[2018-09-05] MEDS: Furosemide 40 MG TAB PO SCH (07:52)
[2018-09-05] MEDS: Carvedilol 3.125 MG TAB PO SCH ×2 (07:52→17:41)
[2018-09-05] MEDS ORDERED: Lisinopril 2.5 MG TAB PO SCH (09:00)
[2018-09-05] MEDS: HYDROcodone/Acetaminophen 5/325 mg Tablet PO PRN ×3 (09:14→23:13)
[2018-09-05] MEDS: Aspirin 81 mg Enteric Coated Tablet PO SCH (09:14)
[2018-09-05] MEDS: Docusate 100 MG CAP PO SCH ×2 (09:15→21:03)
--- NOTE | 2018-09-05 18:19 | PDOC.CTH ---
Cardiology Progress Note - Subjective He had chest soreness after walking with PT. Better after [place]. - Objective Vital Signs Temp Pulse Pulse Pulse Resp BP BP 09/05/18 16:02 98.4 F 70 18 09/05/18 14:21 73 72 178/84 H 187/83 H 09/05/18 12:00 99 F 64 18 09/05/18 09:15 67 09/05/18 09:13 98.8 F 67 16 BP Pulse Ox Pulse Ox Pulse Ox 09/05/18 16:02 157/76 H 96 09/05/18 14:21 97 97 09/05/18 12:00 135/68 97 09/05/18 09:15 96 09/05/18 09:13 165/77 H 96 Weight 217 lb 09/04/18 09/05/18 09/06/18 06:59 06:59 06:59 Intake Total 3753 1200 Output Total 3165 3335 Balance 588 -2135 - Physical Examination General/Neuro: alert & oriented x3, NAD Neck: no JVD present Lungs: CTA, unlabored respirations Heart: RRR Abdomen: NT/ND Extremities: + edema B (1+) - Telemetry Telemetry Rhythm: NSR - Labs Result Diagrams: 09/05/18 05:20 09/05/18 05:20 - Assessment/Plan 1. CAD 2. S/P CABG PLAN: - Continue post op care - ASA and statin for life. - Will increase ACEI. Continue BB. - Daily PO lasix for now.
[2018-09-05] MEDS ORDERED: Lisinopril 5 MG TAB PO SCH (18:30)
[2018-09-05] MEDS: Simvastatin 5 MG TAB PO SCH (21:03)
[2018-09-06 05:46] LABS: #Eosinphils 0.3 thou/uL (0.0-0.7); #Lymphocytes 1.3 thou/uL (1.20-3.40); #Monocytes 0.5 thou/uL (0.11-0.59); #Neutrophils 3.8 thou/uL (1.40-6.50); %Basophils 0.7 % (0.0-1.0); %Eosinophils 4.5 % (0.0-10.0); %Lymphocytes 21.8 % (21.0-51.0); %Monocytes 8.5 % (0.0-10.0); %Neutrophils 64.5 % (42.0-75.0); Hemoglobin 11.1 g/dL (14.0-18.0); Mean Corpuscular HGB CONC 34.1 g/dL (32.0-36.0); Mean Corpuscular Hemoglobin 31.1 pg (27.0-31.0); Mean Corpuscular Volume 91.2 fL (78.0-98.0); Mean Platelet Volume 9.7 fL (7.4-10.4); Platelet Count 168 thou/uL (130-400); RBC Distribution Width 11.5 % (11.5-14.5); Red Blood Cell (RBC) Count 3.56 mill/uL (4.70-6.10)
[2018-09-06 05:55] LABS: Anion Gap 10 mmol/L (10-20); BUN (Urea Nitrogen) 18 mg/dL (8.4-25.7); Calc. Creatinine Clearance 147 mL/min (70-130); Calcium 8.1 mg/dL (7.8-10.44); Carbon Dioxide 24 mmol/L (23-31); Chloride 105 mmol/L (98-107); Estimated GFR-MDRD Greater than 90; Glucose 103 mg/dL (80-115); Sodium 135 mmol/L (136-145)
[2018-09-06] MEDS: Furosemide 40 MG TAB PO SCH (08:25)
[2018-09-06] MEDS: Docusate 100 MG CAP PO SCH ×2 (08:25→21:02)
[2018-09-06] MEDS: Aspirin 81 mg Enteric Coated Tablet PO SCH (08:25)
[2018-09-06] MEDS: Carvedilol 3.125 MG TAB PO SCH ×2 (08:25→17:35)
--- NOTE | 2018-09-06 08:28 | RAD ---
SINGLE VIEW OF THE CHEST: INDICATION: Status post CABG. COMPARISON: Prior exam dated 09/05/2018. IMPRESSION: The examination is unchanged from the comparison. Bilateral thoracotomy tubes are stable. Cardiomeg dash and midline sternotomy change is similar. Right subclavian central venous catheter is unchanged. No pneumothorax is evident. POS: [facility]
[2018-09-06] MEDS ORDERED: Lisinopril 5 MG TAB PO SCH (09:00)
--- NOTE | 2018-09-06 15:58 | PDOC.CTH ---
Cardiology Progress Note - Subjective No new issues. Sore chest otherwise no new issues. Still no BM but passing gas. - Objective Vital Signs Temp Pulse Resp BP Pulse Ox 09/06/18 15:33 98.0 F 68 17 143/65 H 98 09/06/18 11:16 98.1 F 67 18 162/73 H 95 09/06/18 08:25 65 09/06/18 08:20 98.2 F 65 16 158/74 H 95 09/06/18 04:00 97.6 F 56 L 20 156/75 H 95 Weight 207 lb 3.2 oz 09/05/18 09/06/18 09/07/18 06:59 06:59 06:59 Intake Total 1200 240 Output Total 3335 705 Balance -2135 -465 - Physical Examination General/Neuro: alert & oriented x3, NAD Neck: no JVD present Lungs: CTA, unlabored respirations Heart: RRR Abdomen: NT/ND Extremities: + edema B (1+) - Telemetry Telemetry Rhythm: NSR - Labs Result Diagrams: 09/06/18 04:37 09/06/18 04:37 - Assessment/Plan 1. CAD 2. S/P CABG PLAN: - Continue post op care - ASA and statin for life. - Will increase ACEI for BP. HR borderline low to up titrate BB. - Daily PO lasix.
[2018-09-06] MEDS: Simvastatin 5 MG TAB PO SCH (21:02)
--- NOTE | 2018-09-06 22:36 | EKG ---
Test Reason : Blood Pressure : / mmHG Vent. Rate : 064 BPM Atrial Rate : 064 BPM P-R Int : 146 ms QRS Dur : 100 ms QT Int : 444 ms P-R-T Axes : 021 002 052 degrees QTc Int : 458 ms Poor data quality, interpretation may be adversely affected Normal sinus rhythm Minimal voltage criteria for LVH, may be normal variant Nonspecific T wave abnormality Abnormal ECG When compared with ECG of 02-SEP-2018 13:28, Non-specific change in ST segment in Anterior leads T wave inversion no longer evident in Anterior leads Confirmed by ZHANNA OSORIO, SKarie ([id number]) on 09/06/2018 10:35:42 PM Referred By: FABIOLA Confirmed By:DR. Annalisa CHAO MD
[2018-09-07 05:29] LABS: #Eosinphils 0.2 thou/uL (0.0-0.7); #Lymphocytes 1.5 thou/uL (1.20-3.40); #Monocytes 0.5 thou/uL (0.11-0.59); #Neutrophils 3.5 thou/uL (1.40-6.50); %Basophils 0.1 % (0.0-1.0); %Eosinophils 4.2 % (0.0-10.0); %Lymphocytes 26.4 % (21.0-51.0); %Neutrophils 61.4 % (42.0-75.0); Mean Corpuscular HGB CONC 34.4 g/dL (32.0-36.0); Mean Corpuscular Volume 90.1 fL (78.0-98.0); Mean Platelet Volume 8.9 fL (7.4-10.4); Platelet Count 205 thou/uL (130-400); RBC Distribution Width 11.5 % (11.5-14.5); Red Blood Cell (RBC) Count 3.86 mill/uL (4.70-6.10); White Blood Cell (WBC) Count 5.7 thou/uL (4.8-10.8)
[2018-09-07 05:41] LABS: Anion Gap 11 mmol/L (10-20); BUN (Urea Nitrogen) 15 mg/dL (8.4-25.7); Calc. Creatinine Clearance 129 mL/min (70-130); Calcium 8.4 mg/dL (7.8-10.44); Carbon Dioxide 24 mmol/L (23-31); Chloride 104 mmol/L (98-107); Estimated GFR-MDRD Greater than 90; Glucose 113 mg/dL (80-115); Potassium 3.8 mmol/L (3.5-5.1); Sodium 135 mmol/L (136-145)
[2018-09-07] MEDS: Lisinopril 5 MG TAB PO SCH (08:00)
[2018-09-07] MEDS: Aspirin 81 mg Enteric Coated Tablet PO SCH (08:00)
[2018-09-07] MEDS: Furosemide 40 MG TAB PO SCH ×3 (08:00→14:29)
[2018-09-07] MEDS: Carvedilol 3.125 MG TAB PO SCH ×2 (08:00→16:15)
[2018-09-07] MEDS: Docusate 100 MG CAP PO SCH ×2 (08:00→20:00)
[2018-09-07] MEDS: Simvastatin 5 MG TAB PO SCH (20:01)
[2018-09-07] MEDS: HYDROcodone/Acetaminophen 5/325 mg Tablet PO PRN (20:01)
[2018-09-07] MEDS: Guaifenesin DM 100-10/5 ML UDCUP PO PRN (20:02)
[2018-09-08 05:51] LABS: #Eosinphils 0.3 thou/uL (0.0-0.7); #Lymphocytes 1.7 thou/uL (1.20-3.40); #Monocytes 0.5 thou/uL (0.11-0.59); #Neutrophils 4.2 thou/uL (1.40-6.50); %Basophils 0.1 % (0.0-1.0); %Eosinophils 4.1 % (0.0-10.0); %Lymphocytes 25.1 % (21.0-51.0); %Monocytes 7.5 % (0.0-10.0); %Neutrophils 63.2 % (42.0-75.0); Hemoglobin 11.9 g/dL (14.0-18.0); Mean Corpuscular HGB CONC 34.4 g/dL (32.0-36.0); Mean Corpuscular Hemoglobin 31.1 pg (27.0-31.0); Mean Corpuscular Volume 90.3 fL (78.0-98.0); Mean Platelet Volume 8.8 fL (7.4-10.4); Platelet Count 217 thou/uL (130-400); RBC Distribution Width 11.9 % (11.5-14.5); Red Blood Cell (RBC) Count 3.82 mill/uL (4.70-6.10); White Blood Cell (WBC) Count 6.7 thou/uL (4.8-10.8)
[2018-09-08 06:08] LABS: Anion Gap 12 mmol/L (10-20); BUN (Urea Nitrogen) 16 mg/dL (8.4-25.7); Calc. Creatinine Clearance 124 mL/min (70-130); Calcium 8.4 mg/dL (7.8-10.44); Carbon Dioxide 24 mmol/L (23-31); Chloride 104 mmol/L (98-107); Estimated GFR-MDRD Greater than 90; Glucose 112 mg/dL (80-115); Potassium 3.7 mmol/L (3.5-5.1); Sodium 136 mmol/L (136-145)
[2018-09-08] MEDS: Docusate 100 MG CAP PO SCH ×2 (09:13→20:10)
[2018-09-08] MEDS: Lisinopril 5 MG TAB PO SCH (09:13)
[2018-09-08] MEDS: Furosemide 40 MG TAB PO SCH ×2 (09:13→15:15)
[2018-09-08] MEDS: Aspirin 81 mg Enteric Coated Tablet PO SCH (09:13)
[2018-09-08] MEDS: Carvedilol 3.125 MG TAB PO SCH ×2 (09:13→17:58)
[2018-09-08] MEDS: Simvastatin 5 MG TAB PO SCH (20:10)
[2018-09-08] MEDS: HYDROcodone/Acetaminophen 5/325 mg Tablet PO PRN (20:11)
[2018-09-09 05:17] LABS: #Eosinphils 0.3 thou/uL (0.0-0.7); #Lymphocytes 1.8 thou/uL (1.20-3.40); #Monocytes 0.4 thou/uL (0.11-0.59); #Neutrophils 4.2 thou/uL (1.40-6.50); %Basophils 0.6 % (0.0-1.0); %Eosinophils 4.3 % (0.0-10.0); %Lymphocytes 26.1 % (21.0-51.0); %Monocytes 6.5 % (0.0-10.0); %Neutrophils 62.6 % (42.0-75.0); Hemoglobin 12.3 g/dL (14.0-18.0); Mean Corpuscular HGB CONC 33.9 g/dL (32.0-36.0); Mean Corpuscular Hemoglobin 30.6 pg (27.0-31.0); Mean Corpuscular Volume 90.3 fL (78.0-98.0); Mean Platelet Volume 8.9 fL (7.4-10.4); Platelet Count 226 thou/uL (130-400); RBC Distribution Width 11.8 % (11.5-14.5); Red Blood Cell (RBC) Count 4.02 mill/uL (4.70-6.10); White Blood Cell (WBC) Count 6.7 thou/uL (4.8-10.8)
[2018-09-09 05:40] LABS: Anion Gap 13 mmol/L (10-20); BUN (Urea Nitrogen) 21 mg/dL (8.4-25.7); Calc. Creatinine Clearance 117 mL/min (70-130); Calcium 8.7 mg/dL (7.8-10.44); Carbon Dioxide 23 mmol/L (23-31); Chloride 105 mmol/L (98-107); Estimated GFR-MDRD Greater than 90; Glucose 109 mg/dL (80-115); Potassium 4.2 mmol/L (3.5-5.1); Sodium 137 mmol/L (136-145)
--- NOTE | 2018-09-09 09:12 | RAD ---
PORTABLE CHEST: DATE: 09/09/2018. PROVIDED CLINICAL HISTORY: Post CABG. FINDINGS: Comparison 09/06/2018. Cardiac silhouette remains enlarged. Median sternotomy changes are again seen. Left-sided pleural c atheter is redemonstrated in similar position. Right-sided central line is again seen. Mediastinal drain is no longer evident. Bibasilar subsegmental atelectatic change, left greater than right, is a gain seen. No evidence for pneumothorax or large effusion. IMPRESSION: Persistent left basilar airspace disease presumably reflecting atelectasis. POS: [facility]
[2018-09-09] MEDS: Furosemide 40 MG TAB PO SCH ×2 (09:22→13:34)
[2018-09-09] MEDS: Aspirin 81 mg Enteric Coated Tablet PO SCH (09:22)
[2018-09-09] MEDS: Carvedilol 3.125 MG TAB PO SCH ×2 (09:22→16:42)
[2018-09-09] MEDS: Lisinopril 5 MG TAB PO SCH (09:22)
[2018-09-09] MEDS: Docusate 100 MG CAP PO SCH ×2 (09:22→21:58)
[2018-09-09] MEDS ORDERED: Furosemide 40 MG/4 ML VIAL SLOW IVP SCH (10:00)
[2018-09-09] MEDS ORDERED: Metolazone 5 MG TAB PO SCH (10:00)
[2018-09-09] MEDS: HYDROcodone/Acetaminophen 5/325 mg Tablet PO PRN (16:44)
[2018-09-09] MEDS: Ondansetron PF 4 MG/2 ML Vial IVP PRN (16:44)
--- NOTE | 2018-09-09 17:14 | PDOC.CTH ---
Cardiology Progress Note - Subjective He is doing better. He is having normal BM's. No other issues. - Objective Vital Signs Temp Pulse Pulse Pulse Resp BP BP 09/09/18 15:27 98.5 F 68 18 09/09/18 13:55 68 106/54 L 101/57 L 09/09/18 12:00 98.9 F 74 17 09/09/18 09:32 74 88 116/69 150/70 H 09/09/18 09:22 72 09/09/18 08:00 98.5 F 72 18 BP BP Pulse Ox Pulse Ox Pulse Ox 09/09/18 15:27 102/55 L 93 L 09/09/18 13:55 98 95 09/09/18 12:00 118/62 96 09/09/18 09:32 98 98 09/09/18 09:22 09/09/18 08:00 122/68 94 L Weight 192 lb 12.8 oz 09/08/18 09/09/18 09/10/18 06:59 06:59 06:59 Intake Total 1100 960 640 Output Total 498 562 0234 Balance 715 45 -1180 - Physical Examination General/Neuro: alert & oriented x3, NAD Neck: no JVD present Lungs: CTA, unlabored respirations Heart: RRR Abdomen: NT/ND Extremities: + edema B (1+) - Telemetry Telemetry Rhythm: NSR - Labs Result Diagrams: 09/09/18 05:02 09/09/18 05:02 - Assessment/Plan 1. CAD 2. S/P CABG PLAN: - Continue post op care - ASA and statin for life. - Continue ACEI/BB. - Daily PO lasix. - Increase PT as tolerated.
[2018-09-09] MEDS: Simvastatin 5 MG TAB PO SCH (21:59)
[2018-09-10 05:10] LABS: #Eosinphils 0.3 thou/uL (0.0-0.7); #Lymphocytes 1.8 thou/uL (1.20-3.40); #Monocytes 0.6 thou/uL (0.11-0.59); #Neutrophils 5.4 thou/uL (1.40-6.50); %Basophils 0.2 % (0.0-1.0); %Lymphocytes 22.4 % (21.0-51.0); %Monocytes 7.4 % (0.0-10.0); Hemoglobin 12.8 g/dL (14.0-18.0); Mean Corpuscular Hemoglobin 30.6 pg (27.0-31.0); Mean Corpuscular Volume 90.2 fL (78.0-98.0); Mean Platelet Volume 8.5 fL (7.4-10.4); Platelet Count 274 thou/uL (130-400); RBC Distribution Width 11.9 % (11.5-14.5); Red Blood Cell (RBC) Count 4.17 mill/uL (4.70-6.10); White Blood Cell (WBC) Count 8.2 thou/uL (4.8-10.8)
[2018-09-10 05:37] LABS: Anion Gap 13 mmol/L (10-20); BUN (Urea Nitrogen) 31 mg/dL (8.4-25.7); Calc. Creatinine Clearance 71 mL/min (70-130); Calcium 8.9 mg/dL (7.8-10.44); Carbon Dioxide 26 mmol/L (23-31); Chloride 99 mmol/L (98-107); Estimated GFR-MDRD 57; Glucose 115 mg/dL (80-115); Sodium 134 mmol/L (136-145)
[2018-09-10] MEDS ORDERED: Furosemide 40 MG TAB PO SCH (07:30)
[2018-09-10] MEDS: Lisinopril 5 MG TAB PO SCH (10:34)
[2018-09-10] MEDS: Carvedilol 3.125 MG TAB PO SCH ×2 (10:34→18:35)
[2018-09-10] MEDS: Docusate 100 MG CAP PO SCH ×2 (10:34→20:41)
[2018-09-10] MEDS: Aspirin 81 mg Enteric Coated Tablet PO SCH (10:35)
--- NOTE | 2018-09-10 11:08 | RAD ---
PORTABLE CHEST: HISTORY: Post CABG procedure. FINDINGS: There is atelectasis and/or infiltrate in the right mid lung and right lower lung. There is cardiome reshma with mild vascular congestion. Bilateral effusions. A central line appears adequately position ed. The sternotomy wires noted on yesterday's exam are no long present. IMPRESSION: 1. Atelectasis and/or infiltrate in the right mid and lower lung 2. Cardiomegaly with mild vascular congestion and bilateral effusions are noted. POS: [facility]
--- NOTE | 2018-09-10 17:56 | PDOC.CTH ---
Cardiology Progress Note - Subjective Chest tubes are out. He is doing better. Having normal BM's He is walking around halls without issues. - Objective Vital Signs Temp Pulse Pulse Pulse Resp BP BP 09/10/18 13:53 99.2 F 69 16 09/10/18 10:32 73 09/10/18 10:31 73 09/10/18 09:20 77 72 105/58 L 104/59 L 09/10/18 07:51 98.7 F 71 18 BP BP Pulse Ox Pulse Ox Pulse Ox 09/10/18 13:53 93/51 L 96 09/10/18 10:32 101/60 09/10/18 10:31 100/55 L 09/10/18 09:20 98 95 09/10/18 07:51 103/58 L 94 L Weight 189 lb 3.2 oz 09/09/18 09/10/18 09/11/18 06:59 06:59 06:59 Intake Total 960 860 Output Total 915 2280 600 Balance 45 -1420 -600 - Physical Examination General/Neuro: alert & oriented x3, NAD Neck: no JVD present Lungs: CTA, unlabored respirations Heart: RRR Abdomen: NT/ND Extremities: + edema B (trace) - Telemetry Telemetry Rhythm: NSR - Labs Result Diagrams: 09/10/18 04:53 09/10/18 04:53 - Assessment/Plan 1. CAD 2. S/P CABG 3. HTN PLAN: - Continue post op care - ASA and statin for life. - Continue ACEI/BB. - Will hold lasix due to mild creatinine bump. - Increase PT as tolerated.
[2018-09-10] MEDS: Simvastatin 5 MG TAB PO SCH (20:41)
[2018-09-10] MEDS: Guaifenesin DM 100-10/5 ML UDCUP PO PRN (20:41)
[2018-09-11 05:51] LABS: #Eosinphils 0.3 thou/uL (0.0-0.7); #Lymphocytes 1.7 thou/uL (1.20-3.40); #Monocytes 0.6 thou/uL (0.11-0.59); #Neutrophils 4.6 thou/uL (1.40-6.50); %Basophils 0.2 % (0.0-1.0); %Eosinophils 4.2 % (0.0-10.0); %Lymphocytes 23.9 % (21.0-51.0); %Monocytes 7.7 % (0.0-10.0); Hemoglobin 12.4 g/dL (14.0-18.0); Mean Corpuscular HGB CONC 34.5 g/dL (32.0-36.0); Mean Corpuscular Hemoglobin 31.1 pg (27.0-31.0); Mean Platelet Volume 8.6 fL (7.4-10.4); Platelet Count 258 thou/uL (130-400); RBC Distribution Width 11.6 % (11.5-14.5); Red Blood Cell (RBC) Count 3.99 mill/uL (4.70-6.10); White Blood Cell (WBC) Count 7.2 thou/uL (4.8-10.8)
[2018-09-11 06:13] LABS: Anion Gap 12 mmol/L (10-20); BUN (Urea Nitrogen) 42 mg/dL (8.4-25.7); Calc. Creatinine Clearance 68 mL/min (70-130); Calcium 8.8 mg/dL (7.8-10.44); Carbon Dioxide 25 mmol/L (23-31); Chloride 98 mmol/L (98-107); Estimated GFR-MDRD 55; Glucose 122 mg/dL (80-115); Potassium 4.1 mmol/L (3.5-5.1); Sodium 131 mmol/L (136-145)
[2018-09-11] MEDS: Carvedilol 3.125 MG TAB PO SCH (09:02)
[2018-09-11] MEDS: Lisinopril 5 MG TAB PO SCH (09:03)
[2018-09-11] MEDS: Aspirin 81 mg Enteric Coated Tablet PO SCH (09:03)
[2018-09-11] MEDS: Docusate 100 MG CAP PO SCH ×2 (09:06→22:07)
[2018-09-11] MEDS: Guaifenesin DM 100-10/5 ML UDCUP PO PRN ×3 (09:14→22:08)
--- NOTE | 2018-09-11 14:27 | DIS ---
DATE OF ADMISSION: 09/02/2018 DATE OF DISCHARGE: 09/11/2018 PRINCIPAL DIAGNOSIS: Coronary artery disease with ischemic cardiomyopathy. PROCEDURES PERFORMED: Coronary artery bypass grafting x4 with left internal mammary artery to the LAD and separate reversed greater saphenous vein grafts from the aorta to the diagonal, the first obtuse marginal, and the PDA on 09/02/2018. HISTORY OF PRESENT ILLNESS AND HOSPITAL COURSE: The patient is a 68-year-old male with known coronary artery disease, who underwent a long stenting of his LAD in 2009. He done well up until about a year ago and he began having dyspnea on exertion and occasional chest heaviness similar to what he had prior to his stenting. It reached to a point where he got short of breath with minimal exertion and occasionally even at rest. 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 His ejection fraction was around 30% dramatically lower than that shown on stress test that was a part of preoperative evaluation for cholecystectomy during the summer. He was taken off his Plavix and electively admitted for surgical revascularization. He had an uneventful overnight stay in the intensive care unit off the vasopressors, but was somewhat slow to wake up and started breathing on his own adequately for weaning of the ventilator. He was extubated early on the morning of postoperative day 1. Diuresis was initiated and initially beta-blockade and Paul inhibitors were held. He was transferred to the Telemetry Unit on the postoperative day 1. While his mediastinal tube output eventually diminished sufficiently to allow for tube removal, several days postop, it took considerable diuresis and until postoperative day 8 to remove his pleural tube. His BUN and creatinine were beginning to rise a bit and was opted to stop his diuresis even though, it may very well be that ultimately he requires some baseline diuretic on a long-term basis. Today, on postoperative day 9, he is being discharged with prescriptions for Coreg 3.125 mg b.i.d., lisinopril 10 mg a day, and Vicodin as needed for pain. He is to continue his baby aspirin daily and his lovastatin 20 mg at bedtime, but he is to stop his Plavix and his isordil. I will plan on seeing him in the office in about [address] Quiroz will be per him. Job ID: [id number]
[2018-09-11] MEDS ORDERED: Sodium Chloride 0.9% 500 ML IVPB SCH (15:00)
--- NOTE | 2018-09-11 16:29 | PDOC.CTH ---
Cardiology Progress Note - Subjective He becomes lightheaded with standing up. - Objective Vital Signs Temp Pulse Resp BP BP Pulse Ox 09/11/18 09:03 68 106/56 L 09/11/18 08:00 98.2 F 70 18 106/56 L 95 Weight 191 lb 9.6 oz 09/10/18 09/11/18 09/12/18 06:59 06:59 06:59 Intake Total 860 240 Output Total 2280 1800 Balance -1420 -1560 - Physical Examination General/Neuro: alert & oriented x3, NAD Neck: no JVD present Lungs: unlabored respirations Heart: RRR Abdomen: NT/ND Extremities: other: (no edema.) - Telemetry Telemetry Rhythm: NSR - Labs Result Diagrams: 09/11/18 05:15 09/11/18 05:15 - Assessment/Plan 1. CAD 2. S/P CABG 3. HTN 4. Orthostatic hypotension PLAN: - Continue post op care - ASA and statin for life. - Will give IV fluids back and hold BP meds. - Home tomorrow if better.
[2018-09-11] MEDS: Simvastatin 5 MG TAB PO SCH (22:07)
[2018-09-12 05:34] LABS: #Eosinphils 0.4 thou/uL (0.0-0.7); #Lymphocytes 1.9 thou/uL (1.20-3.40); #Monocytes 0.6 thou/uL (0.11-0.59); %Basophils 0.5 % (0.0-1.0); %Eosinophils 4.6 % (0.0-10.0); %Lymphocytes 23.6 % (21.0-51.0); %Monocytes 7.9 % (0.0-10.0); %Neutrophils 63.4 % (42.0-75.0); Hemoglobin 12.3 g/dL (14.0-18.0); Mean Corpuscular HGB CONC 34.7 g/dL (32.0-36.0); Mean Corpuscular Hemoglobin 31.3 pg (27.0-31.0); Mean Corpuscular Volume 90.3 fL (78.0-98.0); Mean Platelet Volume 8.8 fL (7.4-10.4); Platelet Count 247 thou/uL (130-400); RBC Distribution Width 11.6 % (11.5-14.5); Red Blood Cell (RBC) Count 3.91 mill/uL (4.70-6.10); White Blood Cell (WBC) Count 7.9 thou/uL (4.8-10.8)
[2018-09-12 06:07] LABS: Anion Gap 13 mmol/L (10-20); BUN (Urea Nitrogen) 38 mg/dL (8.4-25.7); Calc. Creatinine Clearance 74 mL/min (70-130); Calcium 8.8 mg/dL (7.8-10.44); Carbon Dioxide 26 mmol/L (23-31); Chloride 99 mmol/L (98-107); Estimated GFR-MDRD 60; Glucose 117 mg/dL (80-115); Potassium 4.6 mmol/L (3.5-5.1); Sodium 133 mmol/L (136-145)
[2018-09-12] MEDS: Docusate 100 MG CAP PO SCH ×2 (08:47→20:37)
[2018-09-12] MEDS: Aspirin 81 mg Enteric Coated Tablet PO SCH (08:47)
--- NOTE | 2018-09-12 11:42 | RAD ---
FRONTAL AND LATERAL IMAGING OF CHEST: Date: 09/12/18 COMPARISON: 11/14/17. HISTORY: Shortness of breath. FINDINGS: Midline sternotomy wires are present. There are mediastinal clips noted. There is a right-sided vascular catheter, distal tip overlying the region of the right atrium. There is mild linear density in the left base with blunting of the left costophrenic angle suggesting small volume volume loss and small volume pleural fluid. Right lung is clear. IMPRESSION: Postoperative changes as detailed above. Mild pleural and parenchymal opacity noted in the left lung base, nonspecific. POS: [facility]
[2018-09-12] MEDS ORDERED: Sodium Chloride 0.9% 500 ML IV SCH ×2 (12:15→13:30)
[2018-09-12 13:53] VITALS: BMI 35.2
--- NOTE | 2018-09-12 18:36 | PDOC.CTH ---
Cardiology Progress Note - Subjective he is doing better but still orthostatic, BP drops to the 80's with standing. - Objective Vital Signs Temp Pulse Pulse Pulse Pulse Resp BP 09/12/18 15:11 99.2 F 68 16 09/12/18 14:04 68 60 09/12/18 11:52 99 F 67 16 09/12/18 11:19 86 89/50 L 09/12/18 07:50 98.7 F 64 18 BP BP BP BP BP BP Pulse Ox 09/12/18 15:11 102/58 L 98 09/12/18 14:04 124/58 L 122/57 L 86/52 L 105/56 L 09/12/18 11:52 109/58 L 94 L 09/12/18 11:19 99/53 L 112/57 L 92/50 L 09/12/18 07:50 99/55 L 96 Pulse Ox Pulse Ox Pulse Ox Pulse Ox 09/12/18 15:11 09/12/18 14:04 97 93 L 09/12/18 11:52 09/12/18 11:19 96 95 98 09/12/18 07:50 Admit Weight 214 lb 11.684 oz Weight 192 lb 3.2 oz 09/11/18 09/12/18 09/13/18 06:59 06:59 06:59 Intake Total 240 1220 800 Output Total 1800 600 450 Balance -1560 620 350 - Physical Examination General/Neuro: alert & oriented x3, NAD Neck: no JVD present Lungs: unlabored respirations Heart: RRR Abdomen: NT/ND Extremities: other: (no edema) - Telemetry Telemetry Rhythm: NSR - Labs Result Diagrams: 09/12/18 04:51 09/12/18 04:51 - Assessment/Plan 1. CAD 2. S/P CABG 3. HTN 4. Orthostatic hypotension PLAN: - Continue post op care - ASA and statin for life. - Will give one more IV Bolus NS. - Will re evaluate tomorrow for discharge. - Cannot start BB or ACEI due to low BP.
[2018-09-12] MEDS: Simvastatin 5 MG TAB PO SCH (20:37)
[2018-09-13 05:58] LABS: #Eosinphils 0.3 thou/uL (0.0-0.7); #Lymphocytes 1.7 thou/uL (1.20-3.40); #Monocytes 0.4 thou/uL (0.11-0.59); #Neutrophils 4.7 thou/uL (1.40-6.50); %Basophils 0.2 % (0.0-1.0); %Lymphocytes 23.7 % (21.0-51.0); %Monocytes 5.9 % (0.0-10.0); %Neutrophils 66.2 % (42.0-75.0); Mean Corpuscular HGB CONC 33.5 g/dL (32.0-36.0); Mean Corpuscular Hemoglobin 30.1 pg (27.0-31.0); Mean Corpuscular Volume 89.8 fL (78.0-98.0); Mean Platelet Volume 8.9 fL (7.4-10.4); Platelet Count 220 thou/uL (130-400); RBC Distribution Width 11.5 % (11.5-14.5); White Blood Cell (WBC) Count 7.1 thou/uL (4.8-10.8)
[2018-09-13 06:19] LABS: Anion Gap 13 mmol/L (10-20); BUN (Urea Nitrogen) 28 mg/dL (8.4-25.7); Calc. Creatinine Clearance 92 mL/min (70-130); Calcium 8.7 mg/dL (7.8-10.44); Carbon Dioxide 25 mmol/L (23-31); Chloride 100 mmol/L (98-107); Estimated GFR-MDRD 77; Glucose 113 mg/dL (80-115); Potassium 4.5 mmol/L (3.5-5.1)
[2018-09-13 06:43] LABS: Sodium 133 mmol/L (136-145)
[2018-09-13] MEDS: Docusate 100 MG CAP PO SCH (09:25)
[2018-09-13] MEDS: Aspirin 81 mg Enteric Coated Tablet PO SCH (09:25)
[2018-09-13 11:28] VITALS: TEMP 98.9
[2018-09-13 13:34] VITALS: BP 111/56
--- NOTE | 2018-09-13 15:30 | PDOC.CTH ---
Cardiology Progress Note - Subjective Doing much better today. No longer orthostatic. - Objective Vital Signs Temp Pulse Resp BP BP BP Pulse Ox 09/13/18 13:27 75 111/56 L 116/58 L 123/59 L 09/13/18 11:26 98.9 F 79 16 109/60 97 09/13/18 09:24 98.7 F 77 18 131/67 97 09/13/18 03:44 98.9 F 72 17 100/54 L 94 L Admit Weight 214 lb 11.684 oz Weight 186 lb 4 oz 09/12/18 09/13/18 09/14/18 06:59 06:59 06:59 Intake Total 1220 1040 Output Total 600 1025 Balance 620 15 - Physical Examination General/Neuro: alert & oriented x3, NAD Neck: no JVD present Lungs: CTA, unlabored respirations Heart: RRR Abdomen: NT/ND Extremities: other: (no edema) - Telemetry Telemetry Rhythm: NSR - Labs Result Diagrams: 09/13/18 05:14 09/13/18 05:14 - Assessment/Plan 1. CAD 2. S/P CABG 3. HTN 4. Orthostatic hypotension, resolved with IV fluids. PLAN: - ASA and statin for life. - Cannot start BB or ACEI due to low BP. - May discharge home. - Will follow up in the office in 1 month.
== END 2018-09-13 15:30 | disposition home or self-care (01) | DRG 236 ==
LOC: SURG A 06:01 → CCU 08:12 → 2NO 09-03 18:47
PROVIDERS: ADMIT Thoracic Surgery (Cardiothoracic Vascular Surgery); ATTEND Thoracic Surgery (Cardiothoracic Vascular Surgery)
PROC: 02100Z9 Bypass Coronary Artery, One Artery from Left Internal Mammary, Open Approach (ICD-10-PCS; principal; 2018-09-02)
PROC: 06BQ4ZZ Excision of Left Saphenous Vein, Percutaneous Endoscopic Approach (ICD-10-PCS; 2018-09-02)
PROC: 021209W Bypass Coronary Artery, Three Arteries from Aorta with Autologous Venous Tissue, Open Approach (ICD-10-PCS; 2018-09-02)
PROC: 5A1221Z Performance of Cardiac Output, Continuous (ICD-10-PCS; 2018-09-02)
PROC: 0W9930Z Drainage of Right Pleural Cavity with Drainage Device, Percutaneous Approach (ICD-10-PCS; 2018-09-02)
DX: I25.10 Atherosclerotic heart disease of native coronary artery without angina pectoris (principal); J95.811 Postprocedural pneumothorax; T82.855A Stenosis of coronary artery stent, initial encounter; I25.5 Ischemic cardiomyopathy; I10 Essential (primary) hypertension; I95.1 Orthostatic hypotension; E78.5 Hyperlipidemia, unspecified; Z90.49 Acquired absence of other specified parts of digestive tract; Z79.02 Long term (current) use of antithrombotics/antiplatelets; Z79.82 Long term (current) use of aspirin
CPT/HCPCS: 36415; 36416; 36430; 71045; 71046; 80048; 82805; 85025; 85027; 85610; 85730; 86850; 86900; 86901; 93005; 93010; 93798; 94002; 94003; 94150; 94640; J1642; J1644; J1815; J1885; J1940; J2001; J2250; J2260; J2270; J2405; J2440; J2704; J2720; J3010; J3370; J7050; J7620; P9045; S0017; S0028